=== PATIENT | male | born 1980 | race African-American/Black ===

== ENCOUNTER 2017-10-07 09:01 | Emergency (ER) | payer SELFPAY ==
[~2017-10-07] VITALS: Ht 195.6 cm; Wt 105.1 kg
[~2017-10-07 09:01] MED LIST: DRV65 PO; FLX10 PO
[2017-10-07 09:06] VITALS: TEMP 36.3; Ht 195.6 cm; Wt 105.1 kg
[2017-10-07] MEDS ORDERED: ACET-1256 PO (09:16)
--- NOTE | 2017-10-07 09:47 | DIAGNOSTIC IMAGING REPORT ---
R TOE(S) MIN 2 VIEWS CLINICAL HISTORY: R great toe/distal 1st MTP pain COMPARISON: None FINDINGS: No acute fracture is present. There is a bipartite medial sesamoid of the right great toe. There is mild osteoarthritis of the right first metatarsophalangeal joint. IMPRESSION: 1. No acute fracture or dislocation of the right first toe. 2. Bipartite medial sesamoid of the right first toe. 3. Mild osteoarthritis of the right first metatarsophalangeal joint. Electronically signed by: Kvng Sharma M.D. 10/07/2017 9:46 AM Dictated Date/Time: 10/07/2017 9:45 AM
[2017-10-07 10:43] VITALS: BP 145/95; PULSE 78; O2SAT 100
--- NOTE | 2017-10-07 15:07 | EMERGENCY ROOM VISIT NOTE ---
History First contact with patient: 09:09 Chief Complaint: FOOT PAIN Stated Complaint: HURT R FOOT History of Present Illness The patient is a 36 year old male who presents to the Emergency Room with complaints of persistent right foot/great toe pain after playing basketball a few days ago. The patient reports pain with weightbearing. He denies any paresthesias or numbness of the foot or toes. He also denies any pain radiating into the lateral aspect of the foot, ankle or leg. He rates his discomfort an 8 out of 10 with weightbearing. Review of Systems 10 system review was performed and was negative except for pertinent positives and negatives as indicated in history of present illness Past Medical/Surgical History Medical Problems: (1) Alcohol Abuse-Unspec (2) Pneumonia, Organism Nos (3) Tobacco Use Disorder Surgical Problems: (1) No history of previous surgery Family History Unremarkable Social History Smoking Status: Current Every Day Smoker Alcohol Use: occasionally Marital Status: single Housing Status: lives with family Occupation Status: employed Current/Historical Medications Miscellaneous Medications Acetaminophen (Tylenol), 500 MG PO Physical Exam Vital Signs Date Time Temp Pulse Resp B/P (MAP) Pulse Ox O2 Delivery O2 Flow Rate FiO2 10/07/17 10:43 78 18 145/95 100 10/07/17 09:06 36.3 82 18 143/100 100 Room Air Physical Exam CONSTITUTIONAL: Healthy and well nourished. Alert and oriented X 3 with positive affect. HEENT: Normocephalic, atraumatic. Pupils equal, round and reactive. NECK: Full active range of motion without discomfort. RESPIRATORY: Clear to auscultation bilaterally with no wheezing, crackles, rhonchi or stridor. CARDIOVASCULAR: Regular rate and rhythm with no murmurs, rubs or gallops. GASTROINTESTINAL: Bowel sounds present in all quadrants. MUSCULOSKELETAL: Full range of motion of all joints without discomfort. INTEGUMENTARY: No rash or other significant dermatologic conditions noted. NEUROLOGIC: Cranial nerves II-XII grossly intact. No focal neurologic deficits noted. Medical Decision & Procedures ER Provider Diagnostic Interpretation: My interpretation of right great toe x-rays does not show any obvious fractures or dislocations. Patient does have a bipartite medial sesamoid as well as mild osteoarthritic changes of the first MTP joint. Radiologist report is as noted: R TOE(S) MIN 2 VIEWS CLINICAL HISTORY: R great toe/distal 1st MTP pain COMPARISON: None FINDINGS: No acute fracture is present. There is a bipartite medial sesamoid of the right great toe. There is mild osteoarthritis of the right first metatarsophalangeal joint. IMPRESSION: 1. No acute fracture or dislocation of the right first toe. 2. Bipartite medial sesamoid of the right first toe. 3. Mild osteoarthritis of the right first metatarsophalangeal joint. ED Course Patient history and physical exam were performed. Nurse's notes were reviewed. Vital signs were reviewed, showing an elevated blood pressure 143/100. The patient does not appear in any acute distress. X-rays of the right great toe does not show any obvious fractures. The patient was encouraged to intermittently apply ice and elevate the foot for swelling and pain. Ibuprofen and Tylenol as needed for pain. The patient refused any crutches. He was encouraged to follow-up with his PCP or orthopedics if symptoms are not improving within the next week. The patient was happy with plan of care, voiced understanding of all discharge instructions, and denied any significant discomfort at the conclusion of my exam. The patient was also advised of his elevated blood pressure, and encouraged to follow-up with his PCP for recheck. Medical Decision Medication Reconcilliation Current Medication List: was personally reviewed by me Blood Pressure Screening Patient's blood pressure: Elevated blood pressure Blood pressure disposition: Referred to PCP Impression Primary Impression: Injury of right great toe Departure Information Referrals No Doctor, Assigned (PCP) Patient Instructions My [facility] [address] Problem Qualifiers Primary Impression: Injury of right great toe Encounter type: initial encounter Qualified Codes: S99.921A - Unspecified injury of right foot, initial encounter
== END 2017-10-07 10:44 | disposition home or self-care (01) ==
LOC: C.EDB 09:03 → C.EDA 10:44
DX: S99.921A Unspecified injury of right foot, initial encounter (principal); X58.XXXA Exposure to other specified factors, initial encounter; Y93.67 Activity, basketball; R03.0 Elevated blood-pressure reading, without diagnosis of hypertension; F17.200 Nicotine dependence, unspecified, uncomplicated

== ENCOUNTER 2018-02-09 20:31 | Emergency (ER) | payer OTHER ==
[~2018-02-09] VITALS: Ht 195.6 cm; Wt 104.3 kg
[~2018-02-09 20:31] MED LIST changes: +ACET-1256 PO; -DRV65 PO; -FLX10 PO
[2018-02-09 20:38] VITALS: TEMP 36.7; Ht 195.6 cm; Wt 104.3 kg
[2018-02-09] MEDS ORDERED: OPTIRAY 320 IV PRN (21:00)
[2018-02-09] MEDS ORDERED: MoRPHine SULFATE 4 MG/ML 1 ML CARP\\VIAL IV STA ×2 (21:08→22:03)
[2018-02-09 21:29] LABS: ISTAT IONIZED CALCIUM 1.16 mmol/l (1.12-1.32); ISTAT POTASSIUM 3.6 mEq/L (3.3-5.0)
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
[2018-02-09 21:38] LABS: BASO % 0.2 %; BASO ABS # 0.01 K/uL (0-0.2); EOS % 0.8 %; EOS ABS # 0.05 K/uL (0-0.5); HEMATOCRIT 39.6 % (42-52); HEMOGLOBIN 13.7 g/dL (14.0-18.0); IG# 0.01 K/uL (0.00-0.02); LYMPH % 17.2 %; LYMPH ABS # 1.11 K/uL (1.2-3.4); MEAN CELL VOLUME 86.3 fL (80-100); MEAN CORPUSCULAR HEMOGLOBIN 29.8 pg (25-34); MEAN CORPUSCULAR HGB CONC 34.6 g/dl (32-36); MEAN PLATELET VOLUME 11.3 fL (7.4-10.4); MONO % 6.2 %; NEUT % 75.4 %; NEUT ABS # 4.87 K/uL (1.4-6.5); PLATELET COUNT 152 K/uL (130-400); RED CELL DISTRIBUTION WIDTH CV 13.7 % (11.5-14.5); RED CELL DISTRIBUTION WIDTH SD 43.3 fL (36.4-46.3); WHITE BLOOD COUNT 6.45 K/uL (4.8-10.8)
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
[2018-02-09 22:07] LABS: ALBUMIN 3.8 gm/dl (3.4-5.0); ALKALINE PHOSPHATASE 60 U/L (45-117); ALT/SGPT 70 U/L (12-78); AST/SGOT 115 U/L (15-37); BLOOD UREA NITROGEN 14 mg/dl (7-18); CARBON DIOXIDE 27 mmol/L (21-32); CREATININE 1.02 mg/dl (0.60-1.40); GLUCOSE 82 mg/dl (70-99); LIPASE 190 U/L (73-393); POTASSIUM 3.6 mmol/L (3.5-5.1); SODIUM 139 mmol/L (136-145)
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
[2018-02-09] MEDS ORDERED: ONDANSETRON INJ 2 MG/ML 2 ML VIAL IV PRN (23:00)
[2018-02-09] MEDS: MoRPHine SULFATE 4 MG/ML 1 ML CARP\\VIAL IV PRN ×2 (23:18→23:54)
[2018-02-09] MEDS ORDERED: SODIUM CHLORIDE 0.9% 1000ML 1,000 ML IV STA (23:30)
[2018-02-10] MEDS: MoRPHine SULFATE 4 MG/ML 1 ML CARP\\VIAL IV PRN ×2 (01:16→03:37)
[2018-02-10 04:23] VITALS: BP 130/95; PULSE 70; O2SAT 96
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
== END 2018-02-10 04:30 | disposition short-term general hospital (02) ==
LOC: EDBD 20:31 → C.EDC 20:33
DX: S27.331A Laceration of lung, unilateral, initial encounter (principal); S27.0XXA Traumatic pneumothorax, initial encounter; S22.31XA Fracture of one rib, right side, initial encounter for closed fracture; S52.232A Displaced oblique fracture of shaft of left ulna, initial encounter for closed fracture; S50.811A Abrasion of right forearm, initial encounter; S30.811A Abrasion of abdominal wall, initial encounter; S70.211A Abrasion, right hip, initial encounter; V86.65XA Passenger of 3- or 4- wheeled all-terrain vehicle (ATV) injured in nontraffic accident, initial encounter; F17.200 Nicotine dependence, unspecified, uncomplicated